=== PATIENT | male | born 1975 | race Caucasian/White ===

== ENCOUNTER 2020-01-13 16:46 | Outpatient (CLI) | payer OTHER, SELFPAY ==
--- NOTE | ~2020-01-13 | MR_ITS ---
EXAMINATION: MR cervical spine wo con EXAM DATE: 01/13/2020 17:59 INDICATION: Left hand one close. States fell 7 years ago. TECHNIQUE: Multi-sequential, multiplanar MR images of the cervical spine were obtained without contra st. Axial T2, axial T2 MERGE sequence. Sagittal T1, T2, T2 fat saturation images also obtained. Th ere is no prior study for comparison. FINDINGS: There is a sebaceous cyst in the midline at mid cervical level. Moderate loss of the C6-7 disc height, mild to moderate at C5-6. The vertebral body and disc heights are otherwise well maintai kassi. The vertebral bodies are aligned in the AP dimension. The spinal cord signal intensity and intri nsic morphology is normal. Cervicomedullary junction is normal in appearance. There are no suspicious marrow signal abnormalities. Level by level evaluation: C2-C3: Disc does not extend beyond the endplate margin. Uncovertebral joint arthropathy: None. Facet joint arthropathy: Mild bilateral. Neural foraminal stenosis: No stenosis. Central canal stenosis: No stenosis. C3-C4: Disc does not extend beyond the endplate margin. Uncovertebral joint arthropathy: Mild bilateral. Facet joint arthropathy: Mild bilateral. Neural foraminal stenosis: No stenosis. Central canal stenosis: No stenosis. C4-C5: Disc does not extend beyond the endplate margin. Uncovertebral joint arthropathy: Mild bilateral. Facet joint arthropathy: Mild to moderate bilateral. Neural foraminal stenosis: Mild bilateral. Central canal stenosis: No stenosis. C5-C6: There is a mild diffuse disc bulge. Uncovertebral joint arthropathy: Mild to moderate bilateral. Facet joint arthropathy: Mild to moderate bilateral. Neural foraminal stenosis: Mild to moderate bilateral. Central canal stenosis: Mild. C6-C7: There is a mild diffuse disc bulge. Uncovertebral joint arthropathy: Moderate bilateral. Facet joint arthropathy: Mild bilateral. Neural foraminal stenosis: Moderate bilateral. Central canal stenosis: Mild. C7-T1: Disc does not extend beyond the endplate margin. Uncovertebral joint arthropathy: None. Facet joint arthropathy: Mild bilateral. Neural foraminal stenosis: No stenosis. Central canal stenosis: No stenosis. IMPRESSION: 1. C6-7 moderate bilateral neural foraminal stenosis. 2. Less spondylosis at other levels. Reviewed, dictated and finalized at location B.
== END 2020-01-13 16:47 ==
PROVIDERS: Visit Provider Pain Medicine Interventional Pain Medicine
DX: M47.22 Other spondylosis with radiculopathy, cervical region (principal); M48.02 Spinal stenosis, cervical region
CPT/HCPCS: 72141

== ENCOUNTER 2020-01-21 14:27 | Outpatient (CLI) | payer OTHER, SELFPAY ==
--- NOTE | ~2020-01-21 | XR_ITS ---
EXAMINATION: XR hand LT 2V, XR wrist LT min 3V DATE: 01/21/2020 14:46 INDICATION: Erythema and swelling of the left hand and wrist TECHNIQUE: 1. Posteroanterior, ulnar deviation, oblique, and lateral views of the left wrist were obtained. 2. Dorsal palmar and lateral views of the left hand were obtained. COMPARISON: None. FINDINGS: Alignment of the left hand and wrist are normal. No fracture identified. 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 Additional mild osteoarthritis at the midcarpal joint with mild narrowing of the scaphoid capitate articulation. Lucency without evident cortical interruption at th e ulnar styloid process which could represent degenerative cystic change or erosion. Diffuse soft tis carolyn swelling throughout the left hand and wrist. No soft tissue gas or radiopaque foreign bodies. IMPRESSION: 1. Nonspecific diffuse soft tissue swelling about the left hand and wrist. No acute osseous abnormali ty. Reviewed, dictated and finalized at location B. IMPRESSION: 1. Nonspecific diffuse soft tissue swelling about the left hand and wrist. No a cute osseous abnormality.
[2020-01-21 15:24] LABS: Basophils Percent Auto 0.4 % (0.2-1.2); Eosinophils Percent Auto 0.1 % (0-4.4); Hemoglobin 14.9 g/dL (14.0-18.0); Immature Granulocyte Absolute 0.02 K/mm3 (0.00-0.031); Immature Granulocyte Percent A 0.2 % (0-0.5); Lymphocytes Absolute Auto 0.85 K/mm3 (0.9-3.2); Lymphocytes Percent Auto 10.5 % (18.3-44.2); Mean Corpuscular HGB Conc 34.7 g/dl (32-36); Mean Corpuscular Hemoglobin 36.1 pg (26-34); Mean Corpuscular Volume 104.1 fl (80-100); Mean Platelet Volume 9.8 fl (7.4-10.4); Monocytes Absolute Auto 0.8 K/mm3 (0.1-0.6); Monocytes Percent Auto 9.5 % (2.6-8.5); Neutrophils Absolute Auto 6.4 K/mm3 (1.3-6.7); Neutrophils Percent Auto 79.3 % (45.5-73.1); Platelet Count Result 102 k/mm3 (150-375); Red Blood Count 4.13 M/mm3 (4.6-6.20); Red Cell Distribution Width 12.9 % (11.5-14.5); White Blood Count 8.1 K/mm3 (4.5-10.0)
[2020-01-21 15:51] LABS: Erythrocyte Sedimentation Rate 10 mm/hr (0-20)
[2020-01-21 17:06] LABS: Anion Gap 12 mmol/L (8-16); Blood Urea Nitrogen 7 mg/dL (9-20); CRP 0.6 mg/dL (<1.0); Calcium 8.9 mg/dL (8.4-10.2); Carbon Dioxide 28 mmol/L (22-30); Chloride 99 mmol/L (98-107); Cholesterol 163 mg/dL (0-200); Estimated Glomerular Filt Rate > 60; Glucose 109 mg/dL (75-110); HDL Direct 56 mg/dL; Potassium 3.5 mmol/L (3.4-5.0); Sodium 139 mmol/L (137-145); Triglycerides 501 mg/dL (<150)
[2020-01-21 17:13] LABS: Rheumatoid Factor < 12.0 IU/ML (<12)
[2020-01-21 17:14] LABS: LDL Cholesterol Direct 51 mg/dL
[2020-01-25 12:45] LABS: ANA Cascade Screen Positive (Negative)
[2020-01-26 15:42] LABS: Chromatin (Nucleosomal) Ab <1.0; Sm Antibody <1.0; Sm/RNP Antibody <1.0
== END 2020-01-21 14:28 | disposition home or self-care (01) ==
PROVIDERS: PCP Family Medicine; Visit Provider Nurse Practitioner Family
DX: M79.641 Pain in right hand (principal); M79.642 Pain in left hand; Z12.5 Encounter for screening for malignant neoplasm of prostate; Z13.1 Encounter for screening for diabetes mellitus; M25.531 Pain in right wrist; M25.50 Pain in unspecified joint
CPT/HCPCS: 36415; 73110; 73120; 80048; 80061; 84153; 84550; 85025; 85652; 86038; 86140; 86225; 86235; 86430; G0103

== ENCOUNTER 2020-02-13 12:00 | Outpatient (NON) | payer OTHER, SELFPAY ==
[2020-02-13 14:38] LABS: Influenza Control Positive
[2020-02-15 00:53] LABS: SARS-CoV-2 RNA PCR Negative
== END 2020-02-13 12:01 ==
LOC: ANHCOVIDDT 12:01
PROVIDERS: PCP Family Medicine; Visit Provider Physician Assistant Medical
DX: Z20.828 Contact with and (suspected) exposure to other viral communicable diseases (principal); R68.89 Other general symptoms and signs; R50.9 Fever, unspecified
CPT/HCPCS: 87635; 87804; C9803; U0003

== ENCOUNTER 2021-06-10 14:33 | Emergency (ER) | payer OTHER, SELFPAY ==
--- NOTE | ~2021-06-10 | US_ITS ---
US scrotum doppler INDICATION: Right lower quadrant pain radiating to the scrotum. TECHNIQUE: Testicular sonogram utilizing grayscale and color Doppler FINDINGS: Within the right testicle there is a heterogeneous mass measuring 1.5 x 1.4 x 1.3 cm. There is increased vascularity in the right testicle. No discrete mass is identified in the left testicle which exhibits normal vascularity. The right testes measures 4.1 x 3.2 x 2.3 cm centimeters, and the left testis measures 4 x 3.5 x 2.4 cm cm. There are bilateral epididymal cysts. Small right hydrocele. IMPRESSION: 1. Right testicular mass measuring 1.5 cm with increased surrounding vascularity. Findings suspiciou s for malignancy. Recommend urological consultation. 2: Small right hydrocele. Reviewed, dictated and finalized at location A. [employer]LY[employer] IMPRESSION: 1. Right testicular mass measuring 1.5 cm with increased surrounding vasculari ty. Findings suspicious for malignancy. Recommend urological consultation. 2: Small right hydrocele.
--- NOTE | ~2021-06-10 | CT_ITS ---
EXAMINATION: CT abdomen pelvis w con DATE: 06/10/2021 17:58 INDICATION: Right testicular pain and swelling. TECHNIQUE: Computed tomography (CT) of the abdomen and pelvis was performed with 100 cc Omnipaque 350 intravenous contrast. The dose-length product was 450.05 mGy-cm. Automated exposure control and iter ative reconstruction technique were employed. COMPARISON: Ultrasound dated 06/10/2021 FINDINGS: Bibasilar dependent atelectasis. Heart size normal. The liver, spleen, pancreas, adrenal gl ands are unremarkable. There are nonobstructing bilateral renal stones. Small subcentimeter hypodensi ty of the right kidney, most likely benign cyst. Gallbladder is present. Nonobstructive bowel gas pat tern. Normal appendix. There is diffuse bladder wall thickening, likely due to underdistention. There is a right testicular mass corresponding to the abnormality seen on ultrasound, concerning for malig jhonathan. IMPRESSION: 1. No acute abdominal abnormality. 2: 1.3 cm right testicular mass, concerning for malignancy. 3: Nonobstructing bilateral nephrolithiasis. Reviewed, dictated and finalized at location A. ERCIAL FISHER
[2021-06-10 14:40] VITALS: BP 140/99; PULSE 78; RESP 17; TEMP 36.4; O2SAT 97
[2021-06-10] MEDS: ONDANSETRON INJ 4 MG/2 ML VIAL IV PUSH (15:03)
--- NOTE | 2021-06-10 15:04 | ED.ABDPAIN ---
HPI - Abdominal Pain General Chief Complaint: Abdominal Pain Stated Complaint: abd pain Time Seen by Provider: 06/10/21 14:48 Source: patient Mode of arrival: ambulatory Limitations: no limitations History of Present Illness HPI narrative: This is a 45-year-old male that presents to the emergency department for right testicular pain noted since yesterday. Associated with swelling of the area. The pain radiates into his right lower quadrant. Also reports some dysuria. Denies fever, vomiting, or hematuria. Related Data Home Medications Medication Instructions Recorded Confirmed buprenorphine 12 mg-naloxone 3 mg 1 film BUCCAL Q24H 04/06/21 04/06/21 sublingual film Allergies Allergy/AdvReac Type Severity Reaction Status Date / Time No Known Allergies Allergy Unknown Verified 06/10/21 14:45 Review of Systems Review of Systems: CONSTITUTIONAL: Denies fever GASTROINTESTINAL: Reports abdominal pain. Denies nausea, vomiting GENITOURINARY: Reports dysuria. Denies hematuria. SKIN: Denies rash All systems reviewed & are unremarkable except as noted in HPI and below PMFSH Past Medical History Medical History (Updated 06/10/21 @ 18:48 by Domenica Godinez PA-C) Alcohol addiction BMI 27.0-27.9,adult Hepatitis C Hypertension Tobacco abuse Family History Family History Father Cerebrovascular accident Hypertension Mother No problems noted. Sibling No problems noted. Social History Social History Tobacco type: cigarettes Second hand tobacco smoke exposure: Yes Alcohol intake: former Substance use: current Substance use type: marijuana Additional occupation/education comments: [employer] Gender identity (if verbalized by the patient): Male Exam Narrative: GENERAL: Well-appearing, well-nourished, and in no acute distress. HEAD: Normocephalic, atraumatic. EYES: EOMI. CHEST: Clear to auscultation. No respiratory distress. No wheezes rales or rhonchi HEART: Regular rate and rhythm. No murmur heard. Normal peripheral pulses. ABDOMEN: Soft, nondistended, normal active bowel sounds. Tender to palpation in the RLQ, without guarding EXTREMITIES: Normal range of motion. No edema. SKIN: Warm, dry, no rash. NEURO: No focal deficits. Alert and oriented x3. PSYCH: Normal mood and affect MALE GENITAL: Right testicle is mildly swollen and tender to palpation. No abnormal rashes or lesions. No abnormal urethral discharge Course Consultations Consultation #1: With Dr. Escobar about patient and work-up. Plan is to treat patient with antibiotics to cover for orchitis and rescan once he has finished these. Tumor markers are pending. Date: 06/10/21 Time: 18:30 Vital Signs Vital signs: Vital Signs Temperature 97.6 F 06/10/21 14:40 Pulse Rate 78 06/10/21 14:40 Respiratory Rate 17 06/10/21 14:40 Blood Pressure 140/99 H 06/10/21 14:40 Pulse Oximetry 97 06/10/21 14:40 Temperature 97.6 F 06/10/21 14:40 Pulse Rate 78 06/10/21 14:40 Respiratory Rate 17 06/10/21 14:40 Blood Pressure 140/99 H 06/10/21 14:40 Pulse Oximetry 97 06/10/21 14:40 MDM - Abdominal Pain MDM Narrative Medical decision making narrative: Patient presents to the emergency department for right testicular pain radiating into the right lower quadrant. He is afebrile and nontoxic-appearing. CBC and metabolic panel without concerning findings. Lipase is normal. UA without evidence of infection. Scrotal ultrasound shows a right testicular mass measuring 1.5 cm with increased surrounding vascularity suspicious for malignancy. Small right hydrocele. CT scan of the abdomen and pelvis is without acute abdominal abnormality. Does once again show 1.3 cm right testicular mass concerning for malignancy. Patient and family updated on case findings. With Dr. Escobar about patient and work
[2021-06-10 15:18] LABS: Basophils Percent Auto 0.2 % (0.2-1.2); Eosinophils Percent Auto 0.3 % (0-4.4); Hematocrit 44.4 % (42.0-52.0); Hemoglobin 15.4 g/dL (14.0-18.0); Immature Granulocyte Absolute 0.01 K/mm3 (0.00-0.031); Immature Granulocyte Percent A 0.1 % (0-0.5); Lymphocytes Absolute Auto 1.92 K/mm3 (0.9-3.2); Lymphocytes Percent Auto 22.3 % (18.3-44.2); Mean Corpuscular HGB Conc 34.7 g/dl (32-36); Mean Corpuscular Volume 92.1 fl (80-100); Mean Platelet Volume 10.8 fl (7.4-10.4); Monocytes Absolute Auto 0.6 K/mm3 (0.1-0.6); Monocytes Percent Auto 7.2 % (2.6-8.5); Neutrophils Percent Auto 69.9 % (45.5-73.1); Platelet Count Result 187 k/mm3 (150-375); Red Blood Count 4.82 M/mm3 (4.6-6.20); Red Cell Distribution Width 12.8 % (11.5-14.5); White Blood Count 8.6 K/mm3 (4.5-10.0)
[2021-06-10 15:37] LABS: Ethanol < 10 mg/dL (<10)
[2021-06-10 16:22] LABS: Alanine Aminotransferase 65 U/L (4-50); Albumin Level 4.4 g/dL (3.5-5.1); Alkaline Phosphatase 100 U/L (38-126); Anion Gap 8 mmol/L (8-16); Aspartate Amino Transferase 46 U/L (17-59); Bilirubin,Total 1.1 mg/dL (0.2-1.3); Blood Urea Nitrogen 10 mg/dL (9-20); Calcium 9.5 mg/dL (8.4-10.2); Carbon Dioxide 22 mmol/L (22-30); Chloride 106 mmol/L (98-107); Estimated CRCL calculation 88 ml/min; Estimated Glomerular Filt Rate > 60; Glucose 137 mg/dL (65-110); Lipase 229 U/L (23-300); Potassium 4.2 mmol/L (3.4-5.0); Sodium 136 mmol/L (137-145)
[2021-06-10 16:47] LABS: Prothrombin Time 13.2 Seconds (11.1-14.7)
[2021-06-10 16:48] LABS: Partial Thromboplastin Time 28.4 SECONDS (22.3-36.8)
[2021-06-10 17:05] LABS: Add Urine Microscopic? YES; Appearance Urine Clear (Clear); Bacteria Urine 1+ /hpf; Bilirubin Urine Negative (Negative); Blood Urine Negative (Negative); Color Urine Yellow (Yellow); Glucose Urine UA Negative (Negative); Ketones Urine Trace mg/dL (Negative); Leukocyte Esterase Ur Negative LEU/UL (Negative); Mucus Urine Rare /lpf; Nitrate Urine Negative (Negative); Protein Urine Negative (Negative); WBC Urine 0-3 /hpf
[2021-06-10 17:24] LABS: Amphetamine Screen Urine Negative (Negative); Barbiturate Screen Urine Negative (Negative); Benzodiazepines Screen Urine Negative (Negative); Cannabinoid Screen Urine Positive (Negative); Cocaine Screen Urine Negative (Negative); Methadone Screen Urine Negative (Negative); Opiate Screen Urine Negative (Negative); Phencyclidine Screen Urine Negative (Negative)
[2021-06-10 17:41] LABS: Lactate Dehydrogenase 408 U/L (313-618)
[2021-06-10] MEDS: KETOROLAC 15 MG/ML VIAL (*BKC) IV PUSH (18:01)
[2021-06-10 19:15] VITALS: BP 112/82; PULSE 77; RESP 16; O2SAT 98
[2021-06-14 06:04] LABS: HCG Tumor Marker <3 mIU/mL (<5)
[2021-06-17 19:41] LABS: Alpha Fetoprotein Tumor Marker 2.7 ng/mL (<6.1)
== END 2021-06-10 19:24 | disposition home or self-care (01) ==
PROVIDERS: Physician Assistant; Emergency Provider Emergency Medicine; PCP Nurse Practitioner Family
DX: N45.2 Orchitis (principal); N50.89 Other specified disorders of the male genital organs; Z86.19 Personal history of other infectious and parasitic diseases; I10 Essential (primary) hypertension; N20.0 Calculus of kidney; F17.210 Nicotine dependence, cigarettes, uncomplicated
CPT/HCPCS: 36415; 74177; 76870; 80053; 80307; 81001; 82105; 83615; 83690; 84702; 85025; 85610; 85730; 93976; 96374; 96375; 99284; A9270; J0131; J1885; J2405; Q9967

== ENCOUNTER 2023-03-04 07:00 | Outpatient (NON) | payer OTHER, SELFPAY | END 2023-03-04 07:01 | disposition home or self-care (01) | PROVIDERS: PCP Internal Medicine; Visit Provider Internal Medicine Gastroenterology | DX: Z12.11 Encounter for screening for malignant neoplasm of colon (principal) | CPT/HCPCS: 88305 ==

== ENCOUNTER 2023-03-04 11:41 | Day surgery (SDC) | payer OTHER, SELFPAY ==
[2023-02-21 07:02] VITALS: BMI 22.4
[2023-02-21 15:00] VITALS: BMI 23.1
--- NOTE | 2023-02-27 13:07 | P.HP_ITS ---
History of Present Illness History of Present Illness Consent: Risks, benefits, and alternatives have been discussed and questions answered. Patient agrees to proceed with procedure. Chief complaint: Neoplasm Screening Narrative: Alberto Hart is a 47 year old male Referred for colon cancer screening. Review of Systems Review of Systems: All systems reviewed & are unremarkable except as noted in HPI and below PMFSH Past Medical History Medical History Alcohol addiction BMI 27.0-27.9,adult Body mass index [BMI] 22.0-22.9, adult Hepatitis C Hypertension Stromal tumor of right testicle Tobacco abuse Family History Family History Father Cerebrovascular accident Hypertension Mother No problems noted. Sibling No problems noted. Social History Social History Smoking packs per day: 1 Smoking cigarettes per day: 20.0 Years smoked: 25 Smoking pack-years: 25.00 Smoking status: Current every day smoker Tobacco type: cigarettes Second hand tobacco smoke exposure: Yes Alcohol intake: former Substance use: current Substance use type: former substance user and marijuana Living arrangements: alone Occupation/Education: occupation Additional occupation/education comments: [employer] Gender identity (if verbalized by the patient): Male Spiritual care concerns: No Meds Home Medications and Allergies Home Medications Medication Instructions Recorded Confirmed Type buprenorphine 12 mg-naloxone 3 mg 1 film buccal Q24H 04/06/21 03/04/23 History sublingual film propranolol 20 mg tablet 20 mg PO Q12H #60 tabs 02/08/22 03/04/23 Rx quetiapine 100 mg tablet 100 mg PO BID #60 tabs 02/08/22 03/04/23 Rx methocarbamol 750 mg tablet See Rx Instructions .Route 10/01/22 03/04/23 Rx .COMPLEX #120 tabs allopurinol 100 mg tablet See Rx Instructions .Route 10/31/22 03/04/23 Rx .COMPLEX #90 tabs lisinopril 10 mg tablet 10 mg PO DAILY #90 tabs 10/31/22 03/04/23 Rx gabapentin 600 mg tablet 600 mg PO TID #90 tabs 11/27/22 03/04/23 Rx oxcarbazepine 150 mg tablet 150 mg PO BID 02/21/23 03/04/23 History Allergies Allergy/AdvReac Type Severity Reaction Status Date / Time No Known Allergies Allergy Unknown Verified 03/04/23 12:18 Exam Const: General: alert Orientation/consciousness: patient oriented x3 Resp: Auscultation: clear to auscultation bilaterally Cardio: Rhythm: regular rhythm GI: GI Palp: Yes Soft to palpation and No Tenderness to palpation present (GI) Neuro: General: patient oriented x3 Assessment and Plan Assessment and plan (1) Colon cancer screening: Code(s): Z12.11 - Encounter for screening for malignant neoplasm of colon Status: Acute Assessment and Plan: Colonoscopy with possible biopsy or polypectomy or cautery or injection of substances.
[2023-03-04 12:19] VITALS: BP 144/98; PULSE 58; RESP 16; TEMP 36.6; O2SAT 100; BMI 22.9
--- NOTE | 2023-03-04 12:22 | P.PNAN_ITS ---
Anes - Initial Pre Proc Eval Procedure: Operation Date: 03/04/23 13:00 Proposed Procedures p Screening Colonoscopy - Bryan Galloway MD Date/Time: 03/04/23 12:22 Surgeon: Bryan Galloway MD Pre Op Diagnosis: Neoplasm Screening Patient Data Age: 47 Gender: M Height: 1.75 m Weight: 71 kg Allergies Allergy/AdvReac Type Severity Reaction Status Date / Time No Known Allergies Allergy Unknown Verified 03/04/23 12:18 Home Medications Medication Instructions Recorded Confirmed Type buprenorphine 12 mg-naloxone 3 mg 1 film buccal Q24H 04/06/21 03/04/23 History sublingual film propranolol 20 mg tablet 20 mg PO Q12H #60 tabs 02/08/22 03/04/23 Rx quetiapine 100 mg tablet 100 mg PO BID #60 tabs 02/08/22 03/04/23 Rx methocarbamol 750 mg tablet See Rx Instructions .Route 10/01/22 03/04/23 Rx .COMPLEX #120 tabs allopurinol 100 mg tablet See Rx Instructions .Route 10/31/22 03/04/23 Rx .COMPLEX #90 tabs lisinopril 10 mg tablet 10 mg PO DAILY #90 tabs 10/31/22 03/04/23 Rx gabapentin 600 mg tablet 600 mg PO TID #90 tabs 11/27/22 03/04/23 Rx oxcarbazepine 150 mg tablet 150 mg PO BID 02/21/23 03/04/23 History Patient hx anesthesia problems: none Family hx anesthesia problems: none Results Review: All pre-operative results and documents have been reviewed as part of the pre- operative evaluation. FORMERLY [facility], [facility] Past Medical History Medical History Alcohol addiction BMI 27.0-27.9,adult Body mass index [BMI] 22.0-22.9, adult Hepatitis C Hypertension Stromal tumor of right testicle Tobacco abuse Family History Family History Father Cerebrovascular accident Hypertension Mother No problems noted. Sibling No problems noted. Social History Social History Smoking packs per day: 1 Smoking cigarettes per day: 20.0 Years smoked: 25 Smoking pack-years: 25.00 Smoking status: Current every day smoker Tobacco type: cigarettes Second hand tobacco smoke exposure: Yes Alcohol intake: former Substance use: current Substance use type: former substance user and marijuana Living arrangements: alone Occupation/Education: occupation Additional occupation/education comments: [employer] Gender identity (if verbalized by the patient): Male Spiritual care concerns: No Anes - Eval Final PreProcedure Day of Procedure 03/04/23 12:22 Patient weight: normal Heart: regular rate and rhythm Lungs: decreased breath sounds Airway: Mallampati scale class II and special considerations poor dentition Neurological: alert and oriented Last oral intake: >/= 8 hours ASA classification: III Emergent: no Anesthetic plan: proceed Anesthesia type and monitoring: general GIVS and standard monitoring Results Review: All pre-operative results and documents have been reviewed as part of the pre- operative evaluation. Informed Consent: The patient's anesthetic plan and its attendant risks and benefits were discussed with the patient/family/POA. Questions were solicited and answers provided to the satisfaction of the patient/family/POA.
[2023-03-04] MEDS: LACTATED RINGERS 1,000 ML 150 ML IV CONT (12:42)
[2023-03-04 13:23] VITALS: BP 94/69; PULSE 69; RESP 18; O2SAT 100
[2023-03-04 13:33] VITALS: BP 96/62; PULSE 65; RESP 16; O2SAT 100
[2023-03-04 13:43] VITALS: BP 105/70; PULSE 79; RESP 16; O2SAT 100
--- NOTE | 2023-03-04 13:58 | WPDANESPN ---
Anes - Prog Note Post-Op Date/Time: 03/04/23 13:58 Cardiovascular status: normal Respiratory status: normal Airway patency: baseline Mental status: baseline Post-Op hydration status: normal Vital Signs: Last Vital Signs Temp 36.6 C 03/04/23 12:19 Pulse 79 03/04/23 13:43 Resp 16 03/04/23 13:43 BP 105/70 03/04/23 13:43 Pulse Ox 100 03/04/23 13:43 O2 Del Method Room Air 03/04/23 13:43 Pain Score (VAS): 0 I/O: Intake & Output 03/03/23 03/04/23 03/04/23 23:59 07:59 15:59 Intake Total 500 Balance 500 Patient Feedback: Patient satisfied with anesthetic care.
== END 2023-03-04 13:53 | disposition home or self-care (01) ==
PROVIDERS: PCP Internal Medicine; Visit Provider Internal Medicine Gastroenterology
PROC: 0DJD8ZZ Inspection of Lower Intestinal Tract, Via Natural or Artificial Opening Endoscopic (ICD-10-PCS; CPT 45378; principal; 2023-03-04 13:00)
DX: Z12.11 Encounter for screening for malignant neoplasm of colon (principal); K52.9 Noninfective gastroenteritis and colitis, unspecified; K57.30 Diverticulosis of large intestine without perforation or abscess without bleeding; K64.2 Third degree hemorrhoids
CPT/HCPCS: 45380

== ENCOUNTER 2023-08-07 17:02 | Observation (INO) | payer OTHER, SELFPAY ==
[2023-08-07] VITALS (10 sets, daily range): BP systolic 104–121; BP diastolic 62–85; PULSE 84–108; RESP 13–19; TEMP 36.4–37; O2SAT 99–100; BMI 22.4
--- NOTE | ~2023-08-07 | CT_ITS ---
EXAMINATION: CT abdomen pelvis w con DATE: 08/07/2023 18:18 INDICATION: Left scrotal abscess, extending to the perineum TECHNIQUE: Computed tomography (CT) of the abdomen and pelvis was performed with 100 CC Omnipaque 350 intravenous contrast. Automated exposure control and iterative reconstruction technique were employe d. Exam dose: 320.91 mGy-cm total exam DLP. COMPARISON: 06/10/2021 CT abdomen pelvis FINDINGS: Lung bases are clear. Normal heart size. There is trace pericardial fluid. No pleural effus ion. Several very small hepatic hypodensities are most likely cysts. The liver is otherwise unremarkable. There is approximately 2.6 mm thickness of the gallbladder wall which may be due to under distention or possibly chronic cholecystitis. No pericholecystic fluid or fat stranding or bile duct or pancreat ic duct dilatation is detected. Normal splenic size. Normal morphology of the adrenal glands. No renal mass lesion or urinary tract calculus or hydroureteronephrosis. The urinary bladder is relat ively evacuated. The bladder wall appears thickened. Cystitis is not excluded. Urinary bladder mass l esion cannot be excluded on this limited examination with under distention of urinary bladder. Normal caliber of the abdominal aorta. No intraperitoneal or retroperitoneal or pelvic mass lesion or adenopathy or ascites. No bowel obstruction, bowel wall thickening, pneumatosis or intraperitoneal free air. Prominent air fluid level is noted in the posterior left scrotal area with subcutaneous emphysema and fluid density and fat soft tissue stranding extending into the left perineum and medial aspect of th e left gluteal fold. The overall extent of this process measures up to 6.6 cm anteroposterior, 3.3 cm transverse and 7.8 cm vertical dimension. Small bilateral fat-containing inguinal hernias. No suspicious osteolytic or osteoblastic lesions. IMPRESSION: Posterior left scrotal abscess extending into the left perineum and medial aspect of the left gluteal fold Reviewed, dictated and finalized at [facility]. Reviewed, dictated and finalized at [facility]. IMPRESSION: Posterior left scrotal abscess extending into the left perineum an d medial aspect of the left gluteal fold
--- NOTE | 2023-08-07 17:21 | ED.MALEGU ---
HPI - Male Genitourinary General Chief complaint: Urogenital-Male Stated complaint: requesting US of left testicle Time Seen by Provider: 08/07/23 17:05 History of Present Illness HPI Narrative: 41-year-old male with history of hypertension, anxiety, hepatitis-C and previous alcohol abuse presents to emergency department for left scrotal pain and swelling for 3 days. Patient states he noticed a lump to his testicle on the left side into his primary care physician today. He was advised to come to the ED for further evaluation. States the pain is worse when he sits and he also has some dysuria and nausea. He is also reporting pain to the left lower quadrant of his abdomen. Prior abdominal pelvic surgeries include a right orchiectomy and right inguinal hernia mesh repair. Denies fever and diarrhea. States he did have multiple episodes of vomiting a day prior to when he noticed the lump in the left side of the scrotum. Last bowel movement 2 days ago. States he has not used alcohol in multiple years. Endorses use of marijuana, denies other drug use. Denies concern for sexually transmitted diseases. Related Data Home Medications Medication Instructions Recorded Confirmed buprenorphine 12 mg-naloxone 3 mg 1 film buccal Q24H 04/06/21 08/07/23 sublingual film oxcarbazepine 150 mg tablet 150 mg PO BID 02/21/23 08/07/23 Allergies Allergy/AdvReac Type Severity Reaction Status Date / Time No Known Allergies Allergy Unknown Verified 08/07/23 12:49 Review of Systems Review of Systems: CONSTITUTIONAL: Denies fever, chills, or sweats. EYES: Denies visual changes, redness, or discharge. ENT: Denies rhinorrhea, congestion, sore throat, or otalgia. CARDIOVASCULAR: Denies chest pain, palpitations, or edema. RESPIRATORY: Denies cough or dyspnea. GASTROINTESTINAL: See HPI GENITOURINARY: See HPI SKIN: Denies rash or itching. MUSCULOSKELETAL: Denies back pain, joint pain, or myalgia. NEUROLOGIC: Denies headache, numbness, or weakness. PSYCHIATRIC: Denies anxiety or depression. [facility] Past Medical History Medical History Alcohol addiction Body mass index [BMI] 22.0-22.9, adult Hepatitis C Hypertension Stromal tumor of right testicle Tobacco abuse Family History Family History Father Cerebrovascular accident Hypertension Mother No problems noted. Sibling No problems noted. Social History Social History Smoking packs per day: 1 Smoking cigarettes per day: 20.0 Years smoked: 25 Smoking pack-years: 25.00 Smoking status: Current every day smoker Tobacco type: cigarettes Second hand tobacco smoke exposure: Yes Alcohol intake: former Substance use: current Substance use type: former substance user and marijuana Living arrangements: alone Occupation/Education: occupation Additional occupation/education comments: [employer] Gender identity (if verbalized by the patient): Male Spiritual care concerns: No Exam Narrative: GENERAL: Well-appearing, well-nourished, and in no acute distress. HEAD: Normocephalic, atraumatic. EYES: PERRLA and EOMI. ENT: Nares clear, no rhinorrhea or epistaxis. Mucous membranes moist. NECK: Supple. CHEST: Clear to auscultation. No respiratory distress. HEART: Regular rate and rhythm. No murmur heard. Normal peripheral pulses. ABDOMEN: Normoactive bowel sounds. Abdomen soft with mild tenderness to the left inguinal region and left lower quadrant. No rebound, guarding or rigidity. No CVA tenderness. : Performed with presence of RN. There is significant left scrotal swelling with of focal large abscess just posterior to the left testicle, fluctuance in the middle with a central white punctum. There is erythema and induration that extends into the perineum that is tender to
[2023-08-07] MEDS: SODIUM CHLORIDE 0.9% IV 1,000 ML 999 ML IV CONT ×2 (17:41→20:14)
[2023-08-07] MEDS: MORPHINE SULFATE (*CRX) 4 MG/ML INJ IV PUSH ×2 (17:41→22:18)
[2023-08-07] MEDS: ONDANSETRON INJ 4 MG/2 ML VIAL IV PUSH (17:41)
[2023-08-07 17:42] LABS: Basophils Percent Auto 0.3 % (0.2-1.2); Hematocrit 37.9 % (42.0-52.0); Hemoglobin 13.9 g/dL (14.0-18.0); Immature Granulocyte Absolute 0.12 K/mm3 (0.00-0.031); Immature Granulocyte Percent A 0.8 % (0-0.5); Lymphocytes Percent Auto 9.2 % (18.3-44.2); Mean Corpuscular HGB Conc 36.7 g/dl (32-36); Mean Corpuscular Hemoglobin 33.5 pg (26-34); Mean Corpuscular Volume 91.3 fl (80-100); Mean Platelet Volume 9.8 fl (7.4-10.4); Monocytes Absolute Auto 0.6 K/mm3 (0.1-0.6); Monocytes Percent Auto 3.7 % (2.6-8.5); Neutrophils Absolute Auto 13.1 K/mm3 (1.3-6.7); Platelet Count Result 168 k/mm3 (150-375); Red Blood Count 4.15 M/mm3 (4.6-6.20); Red Cell Distribution Width 11.7 % (11.5-14.5); White Blood Count 15.2 K/mm3 (4.5-10.0)
[2023-08-07 17:54] LABS: Lactic Acid Reflex 2.1 mmol/L (0.7-2.0)
[2023-08-07 18:00] LABS: Alanine Aminotransferase 18 U/L (6-50); Albumin Level 4.2 g/dL (3.5-5.1); Alkaline Phosphatase 69 U/L (38-126); Anion Gap 10 mmol/L (4-12); Aspartate Amino Transferase 22 U/L (17-59); Bilirubin,Total 1.6 mg/dL (0.2-1.3); Blood Urea Nitrogen 13 mg/dL (9-20); Calcium 8.9 mg/dL (8.4-10.2); Carbon Dioxide 23 mmol/L (22-30); Chloride 99 mmol/L (98-107); Estimated CRCL calculation 55 ml/min; Estimated Glomerular Filt Rate 50; Glucose 117 mg/dL (65-110); Lipase 113 U/L (23-300); Potassium 2.8 mmol/L (3.4-5.0); Sodium 132 mmol/L (137-145)
--- NOTE | 2023-08-07 18:00 | ECG_ITS ---
SEE SCANNED COPY FOR CONFIRMED REPORT. MTDD
[2023-08-07 18:02] LABS: Appearance Urine Cloudy (Clear); Bacteria Urine None Seen /hpf; Bilirubin Urine 1+ (Negative); Blood Urine Negative (Negative); Color Urine Dark Yellow (Yellow); Glucose Urine UA Negative (Negative); Hyaline Casts Urine Present /lpf; Ketones Urine Trace mg/dL (Negative); Leukocyte Esterase Ur Trace LEU/UL (Negative); Need Manual Microscopic Reviewed; Nitrate Urine Negative (Negative); Non Pathogenic Casts >20; Protein Urine 1+ mg/dL (Negative); Specific Grav Ur 1.022 (1.001-1.035); Squamous Epithelial Cell Urine Many /hpf (Few); WBC Urine 0-5 /hpf (0-3)
[2023-08-07 18:05] LABS: Add Urine Microscopic? YES
[2023-08-07 18:09] LABS: Estimated CRCL calculation 52 ml/min; Estimated Glomerular Filt Rate 47
[2023-08-07 18:20] LABS: Magnesium 1.7 mg/dL (1.6-2.3)
[2023-08-07] MEDS: POTASSIUM CHLORIDE INJ 40 MEQ in SODIUM CHLORIDE 0.9% IV 500 ML 130 MEQ IVPB (18:47)
[2023-08-07] MEDS: POTASSIUM CHLORIDE 20 MEQ PACKET (FOR LIQUID) 40 MEQ PO (18:59)
--- NOTE | 2023-08-07 20:36 | PM.IMHP ---
H&P: HPI History of Present Illness Date/Time: 08/07/23 20:36 Chief Complaint: scrotal pain Narrative: This is a 47-year-old male with past medical history significant for alcohol dependence, patient has been sober for several years, hypertension, hepatitis-C, stroma tumor of the right testicle status post right orchiectomy, tobacco dependence, patient is a current everyday smoker of 1 pack of cigarettes. patient presents to the emergency room due to 3 days of scrotal pain and swelling, patient had abrupt malodorous discharge while in emergency room. Preliminary workup was significant for CT of abdomen and pelvis was reported as posterior left scrotal abscess. Patient has been admitted to IMU for further evaluation management and treatment. EXAMINATION: CT abdomen pelvis w con DATE: 08/07/2023 18:18 INDICATION: Left scrotal abscess, extending to the perineum TECHNIQUE: Computed tomography (CT) of the abdomen and pelvis was performed with 100 CC Omnipaque 350 intravenous contrast. Automated exposure control and iterative reconstruction technique were employed. Exam dose:? 320.91 mGy-cm total exam DLP.? COMPARISON: 06/10/2021 CT abdomen pelvis FINDINGS: Lung bases are clear. Normal heart size. There is trace pericardial fluid. No pleural effusion. Several very small hepatic hypodensities are most likely cysts. The liver is otherwise unremarkable. There is approximately 2.6 mm thickness of the gallbladder wall which may be due to under distention or possibly chronic cholecystitis. No pericholecystic fluid or fat stranding or bile duct or pancreatic duct dilatation is detected. Normal splenic size. Normal morphology of the adrenal glands. No renal mass lesion or urinary tract calculus or hydroureteronephrosis. The urinary bladder is relatively evacuated. The bladder wall appears thickened. Cystitis is not excluded. Urinary bladder mass lesion cannot be excluded on this limited examination with under distention of urinary bladder. Normal caliber of the abdominal aorta. No intraperitoneal or retroperitoneal or pelvic mass lesion or adenopathy or ascites. No bowel obstruction, bowel wall thickening, pneumatosis or intraperitoneal free air. Prominent air fluid level is noted in the posterior left scrotal area with subcutaneous emphysema and fluid density and fat soft tissue stranding extending into the left perineum and medial aspect of the left gluteal fold. The overall extent of this process measures up to 6.6 cm anteroposterior, 3.3 cm transverse and 7.8 cm vertical dimension. Small bilateral fat-containing inguinal hernias. No suspicious osteolytic or osteoblastic lesions. IMPRESSION:? Posterior left scrotal abscess extending into the left perineum and medial aspect of the left gluteal fold Review of Systems Review of Systems: Scrotal pain swelling malodorous discharge Constitutional: Constitutional: Denies chills, Denies fatigue, Denies fever(s), Denies malaise, Denies night sweats, Denies poor appetite and Denies weakness Eyes: Eyes: Denies change in vision ENT: Denies dysphagia and Denies odynophagia Cardiovascular: Cardiovascular: Denies chest pain, Denies radiating jaw, neck or arm pain and Denies palpitations Respiratory: Respiratory: Denies chest congestion, Denies cough, Denies excessive phlegm production and Denies dyspnea Gastrointestinal: Gastrointestinal: Denies abdominal pain, Reports diarrhea, Denies nausea and Denies vomiting Genitourinary: Genitourinary: Reports scrotal swelling Musculoskeletal: Musculoskeletal: Denies back pain and Denies myalgias Integumentary/Breasts: Skin/Breast: Reports skin pain and Reports skin swelling ( scrotum) Neurologic: Denies focal weakness and Denies Sensory deficit (Neuro) Psychiatric: Psychiatric: Reports no additional psychiatric complaints and Reports as per HPI Endocrine: Endocrine: Denies cold intolerance, Denies fatigue, Denies flushing, Denies heat intole
[2023-08-07 20:39] LABS: Reflex Lactic Acid Yes or No Add Lactic
--- NOTE | 2023-08-07 21:21 | PC.NURSE ---
while patient was lying in bed, he states he felt a sharp pain in scrotum and leakage shortly after. staff entered for assistance and obtained a wound culture from the drainage. GEORGINA Hernandez then attempted to drain the wound to relieve pressure. the drainage appeared light brown and had a very foul odor to it. after draining, GEORGINA placed gauze dressing to the area for further leaking. A depends was applied to patient per their request for comfort. the drainage site was a small hole less than 0.5cm. the scrotum continues to appear edematous and KUMAR Dodge in IMU was notified in this change in patient care. patient stated pain was 8/10 while draining the wound, but states they have relief of pain now that it has been drained
[2023-08-07 21:55] LABS: Lactic Acid 1.1 mmol/L (0.7-2.0)
[2023-08-07] MEDS: PIPERACILLN/TAZ 3.375GM/NS50ML 3.375 GM/50 ML BAG IVPB (21:55)
[2023-08-07] MEDS: QUEtiapine FUMARATE 100 MG TABLET PO (22:17)
[2023-08-07] MEDS: VANCOMYCIN 1,250 MG/NS 250 ML 1,250 MG/250 ML BAG 166.67 MG IVPB (22:18)
--- NOTE | 2023-08-07 22:34 | ADMGEN ---
This patient, Alberto Hart, was admitted to IMU Room 209-01 on 08/07/23 at 2108. Patient/family oriented to hospital policies and general routines including ID bracelet, bed and alarms, visiting hours, pain management, procedures, bathroom and other care routines, personal items, smoking policy, room service/diet, and visiting hours. Information on how to activate the Rapid Response Team has been discussed. Patient/Family are encouraged to report perceived risks to care and to ask questions if they do not understand what they are told or what they should do.
[2023-08-07] MEDS: SODIUM CHLORIDE 0.9% IV 1,000 ML 125 ML IV CONT (23:39)
[2023-08-08] VITALS (19 sets, daily range): BP systolic 99–118; BP diastolic 55–81; PULSE 56–91; RESP 12–18; TEMP 35.9–36.9; O2SAT 96–100
[2023-08-08] MEDS: PIPERACILLN/TAZ 3.375GM/NS50ML 3.375 GM/50 ML BAG IVPB ×4 (02:21→20:31)
[2023-08-08] MEDS: MORPHINE SULFATE (*CRX) 4 MG/ML INJ IV PUSH ×5 (04:10→18:37)
[2023-08-08 04:26] LABS: Estimated CRCL calculation 81 ml/min; Estimated Glomerular Filt Rate > 60
--- NOTE | 2023-08-08 06:39 | WPDURCON ---
Assessment and Plan Assessment and plan (1) Abscess of scrotum: Code(s): N49.2 - Inflammatory disorders of scrotum Status: Acute Assessment and Plan: Patient admitted for supportive care /antibiotics We will plan incision and drainage of scrotal abscess. I have explained to him that this could extend into the perineum and pelvis. I have explained that he will have an open wound will take several weeks to heal. Urology Consult Note HPI Date Seen: 08/08/23 Requesting Physician: Saloni Urrutia MD Primary Care Provider: Jareth Bhakta MD Consult Narrative Narrative: Alberto Hart is a 47 year old male Who is previously unknown to our practice has a history of right orchiectomy for a stromal tumor. He presented to his primary care physician yesterday afternoon with a 3 day history of left scrotal swelling and tenderness. He was directed to go to the emergency department where a large abscess drained spontaneously. Denies fevers chills nausea vomiting CT scan shows abscess in the left posterior scrotum extending into the perineum with inflammation into the buttocks. After consultation with Dr. Nielson we decided to admit for antibiotics and incision/drainage. This will be predominantly drainage of a scrotal abscess but he will be available if there is extension with deeper into the pelvis. Patient has a history of alcohol dependence and has hepatitis-C Review of Systems Cardiovascular: Cardiovascular: Denies chest pain, Denies lightheadedness, Denies palpitations and Denies dyspnea Respiratory: Respiratory: Denies dyspnea Gastrointestinal: Gastrointestinal: Denies diarrhea, Denies nausea and Denies vomiting Genitourinary: Genitourinary: Reports as per HPI, Denies hematuria, Denies dysuria and Reports scrotal swelling Endocrine: Endocrine: Denies palpitations PMFSH Past Medical History Medical History Alcohol addiction Body mass index [BMI] 22.0-22.9, adult Hepatitis C Hypertension Stromal tumor of right testicle Tobacco abuse Family History Family History Father Cerebrovascular accident Hypertension Mother No problems noted. Sibling No problems noted. Social History Social History Smoking packs per day: 1 Smoking cigarettes per day: 20.0 Years smoked: 25 Smoking pack-years: 25.00 Smoking status: Current every day smoker Tobacco type: cigarettes Second hand tobacco smoke exposure: Yes Alcohol intake: former Substance use: current Substance use type: former substance user and marijuana Do You Feel Safe in your Home?: Yes Lack of Transportation: No Lack of Food: Never True Current Housing: I Have Housing Concerned About Future Housing: No Difficulty Paying Gas/Electric Bills: No Difficulty Paying for Meds: No Currently Unemployed: No Education: High School Diploma/GED Difficulty w/ Childcare or Family Care: No Living arrangements: alone Occupation/Education: occupation Additional occupation/education comments: [employer] Gender identity (if verbalized by the patient): Male Spiritual care concerns: No Meds Home Medications and Allergies Home Medications Medication Instructions Recorded Confirmed Type buprenorphine 12 mg-naloxone 3 mg 1 film buccal Q24H 04/06/21 08/07/23 History sublingual film propranolol 20 mg tablet 20 mg PO Q12H #60 tabs 02/08/22 08/07/23 Rx quetiapine 100 mg tablet 100 mg PO BID #60 tabs 02/08/22 08/07/23 Rx oxcarbazepine 150 mg tablet 150 mg PO BID 02/21/23 08/07/23 History gabapentin 600 mg tablet 600 mg PO TID #90 tabs 03/20/23 08/07/23 Rx allopurinol 100 mg tablet 100 mg PO DAILY 08/07/23 08/07/23 History lisinopril 10 mg tablet 10 mg PO HS 08/07/23 08/07/23 History Allergies Allergy/AdvReac Type
--- NOTE | 2023-08-08 06:45 | WPDHPUPDATE1 ---
History and Physical Update Update Date/Time: 08/08/23 06:45 History and Physical has been reviewed, including an updated exam of the patient. There are NO changes in the patient's condition. Risks, benefits, and alternatives have been discussed and questions answered. Patient agrees to proceed with procedure.
--- NOTE | 2023-08-08 07:16 | WPDANESEPPF ---
Anes - Initial Pre Proc Eval Procedure: Operation Date: 08/08/23 07:00 Proposed Procedures p Incision And Drainage Scrotal And Perineal Abscess - Wale Beckett MD Date/Time: 08/08/23 07:16 Surgeon: Saloni Urrutia MD Pre Op Diagnosis: Scrotal Abscess Patient Data Age: 47 Gender: M Height: 1.78 m Weight: 71 kg Last Vital Signs Temp 97.6 F 08/08/23 03:50 Pulse 78 08/08/23 05:55 Resp 18 08/08/23 03:50 BP 105/55 L 08/08/23 03:50 Pulse Ox 100 08/08/23 03:50 O2 Del Method Room Air 08/08/23 04:00 Allergies Allergy/AdvReac Type Severity Reaction Status Date / Time No Known Allergies Allergy Unknown Verified 08/07/23 12:49 Home Medications Medication Instructions Recorded Confirmed Type buprenorphine 12 mg-naloxone 3 mg 1 film buccal Q24H 04/06/21 08/07/23 History sublingual film propranolol 20 mg tablet 20 mg PO Q12H #60 tabs 02/08/22 08/07/23 Rx quetiapine 100 mg tablet 100 mg PO BID #60 tabs 02/08/22 08/07/23 Rx oxcarbazepine 150 mg tablet 150 mg PO BID 02/21/23 08/07/23 History gabapentin 600 mg tablet 600 mg PO TID #90 tabs 03/20/23 08/07/23 Rx allopurinol 100 mg tablet 100 mg PO DAILY 08/07/23 08/07/23 History lisinopril 10 mg tablet 10 mg PO HS 08/07/23 08/07/23 History Laboratory Tests 08/07/23 08/07/23 08/07/23 17:34 17:35 17:49 WBC 15.2 H K/mm3 (4.5-10.0) RBC 4.15 L M/mm3 (4.6-6.20) Hgb 13.9 L g/dL (14.0-18.0) Hct 37.9 L % (42.0-52.0) MCV 91.3 fl (80-100) MCH 33.5 pg (26-34) MCHC 36.7 H g/dl (32-36) RDW 11.7 % (11.5-14.5) Plt Count 168 k/mm3 (150-375) MPV 9.8 fl (7.4-10.4) Immature Gran % (Auto) 0.8 H % (0-0.5) Neut % (Auto) 86.0 H % (45.5-73.1) Lymph % (Auto) 9.2 L % (18.3-44.2) [place] % (Auto) 3.7 % (2.6-8.5) Eos % (Auto) 0.0 % (0-4.4) Baso % (Auto) 0.3 % (0.2-1.2) Lymph # (Auto) 1.40 K/mm3 (0.9-3.2) [place] # (Auto) 0.6 K/mm3 (0.1-0.6) Eos # (Auto) 0.0 K/mm3 (0-0.3) Baso # (Auto) 0.0 K/mm3 (0.0-0.1) Abs Immat Gran (auto) 0.12 H K/mm3 (0.00-0.031) Absolute Neuts (auto) 13.1 H K/mm3 (1.3-6.7) Absolute Nucleated RBC 0.000 K/mm3 (0.0-0.012) Nucleated RBC % 0.0 % (0.0-0.2) Sodium 132 L mmol/L (137-145) Potassium 2.8 L* mmol/L (3.4-5.0) Chloride 99 mmol/L (98-107) Carbon Dioxide 23 mmol/L (22-30) Anion Gap 10 mmol/L (4-12) BUN 13 mg/dL (9-20) Creatinine 1.50 H mg/dL (0.7-1.3) Estim Creat Clear Calc 55 ml/min Estimated GFR 50 L (59 - ) Glucose 117 H mg/dL (65-110) Lactic Acid 2.1 H mmol/L (0.7-2.0) Calcium 8.9 mg/dL (8.4-10.2) Magnesium 1.7 mg/dL (1.6-2.3) Total Bilirubin 1.6 H mg/dL (0.2-1.3) AST 22 U/L (17-59) ALT 18 U/L (6-50) Alkaline Phosphatase 69 U/L (38-126) Total Protein 7.0 g/dL (6.3-8.2) Albumin 4.2 g/dL (3.5-5.1) Lipase 113 U/L (23-300) Urine Color Dark yellow (Yellow) Urine Appearance Cloudy H (Clear) Urine pH 5.0 (5.0-9.0) Ur Specific [place] 1.022 (1.001-1.035) Urine Protein 1+ H mg/dL (Negative) Urine Glucose (UA) Negative mg/dL (Negative) Urine Ketones Trace H mg/dL (Negative) Ur Blood (Man) Negative (Negative) Urine Nitrate Negative (Negative) Urine Bilirubin 1+ H (Negative) Urine Urobilinogen 2.0 H mg/dL (<2.0) Add Ur Microanalysis Reviewed Leukocyte Esterase Rfl Trace H CIPRIANO/UL (Negative) Urine RBC 3-5 H /hpf (0-2) Urine WBC 0-5 /hpf (0-3) Ur Sq
[2023-08-08 07:26] LABS: Potassium 3.4 mmol/L (3.4-5.0)
--- NOTE | 2023-08-08 08:03 | W.PM.PROC2 ---
Procedure Note - Detailed Date of Procedure 08/08/23 Pre-op Diagnosis Scrotal Abscess, Left perineal and left perirectal abscess Post-op Diagnosis Same Procedure Performed Incision and drainage of left perineal and left perirectal abscess Surgeon Anthony Nielson MD Anesthesia General Indications Patient is a 47-year-old gentleman who was admitted to the hospital with a 3 day history of worsening scrotal pain. He was evaluated urgency room in a CT scan abdomen pelvis showed a primarily scrotal abscess with extension into the left perineum and into the perirectal area. He was admitted to the hospital neurology was consulted. Dr. Beckett plans on taking patient to the operating room for incision and drainage of the scrotal abscess and I will assess the left perineum and left perirectal area. Findings Patient had a abscess in the base of the left side of the scrotum. This extended into the left perineum and towards the left perirectal area however the main portion of the extension of the abscess was into the left portion the perineum. There is no evidence of Santos's gangrene. Other findings as per Dr. Beckett' operative note. Description of Procedure For informed consent was obtained from the patient was taken to the operating was placed under general endotracheal anesthesia. He was then placed in the low lithotomy position. Time-out was then performed correctly identifying the patient as well as procedure to be performed. He was given scheduled IV antibiotics. Dr. Beckett then proceeded to incise and drain the left scrotal abscess. His operative findings can be found in his operative note. Once he had initially drained the scrotal abscess I then scrubbed into the procedure and digitally explored the abscess cavity and extended to the left side of the perineum and a little medial towards the perirectal region. There was extension about 5 to 6 cm between the base of the scrotum into the left perineum. Loculations this area broken down with finger dissection and then made a counter incision left perineal area with a scalpel. A Jaimee clamp was then placed through this counter incision leaving a 5 to 6 cm skin bridge. A half-inch [place] drain was then used to go between the counter incision and the scrotal incision. It was secured in place a loop configuration with some 3-0 nylon sutures. The abscess cavity was then irrigated with sterile saline solution as per Dr. Beckett. I left operating room in the patient and Dr. Beckett' care to irrigate the abscess and pack the wound. Patient tolerated my portion of procedure very well there were no complications. Sponge needles instrument counts were for to the procedure as per Dr. Beckett. Blood loss drainage of the left perineal and left perirectal abscess portions of the procedure was 5cc. Implants None Estimated Blood Loss 5 Urine Output 700 Drains Yes (Half-inch Leann drain left perineum and scrotum) Packing Yes Pathology None sent Complications No immediate complications Condition Stable Disposition PACU [facility] Billing Surgery - Charge Forward: Surgery Billing
--- NOTE | 2023-08-08 08:04 | P.OP_ITS ---
Procedure Note - Detailed Date of Procedure 08/08/23 Pre-op Diagnosis Scrotal/perineal abscess Post-op Diagnosis Same Procedure Performed incision and drainage of scrotal/perineal abscess Surgeon Wale Beckett MD and Anthony Nielson MD Anesthesia General Findings scrotal abscess involving the left hemiscrotum and extending into the perineum benign not involving the anus or rectum Description of Procedure Dr. Nielson and I performed this procedure together. Patient was prepped and draped in routine sterile fashion while in a dorsal lithotomy position after the uneventful induction of a general anesthetic. He has an area fluctuance over the posterior aspect of the left hemiscrotum. This is incised and digital palpation identifies extension into the perineum and upper part of the buttocks but does not involve the anus or rectum. These scrotal cavity was opened widely in a vertical direction and a counter incision is made in the perineum. Copious irrigation in a small amount of debridement of necrotic tissue was undertaken. A 1/2 Howard drain is placed through the primary incision and out the perineal counter-incision and secured with 2-0 silk. The abscess cavity was packed with 1/2 iodoform gauze. Blood loss was less than 10 cc. The patient tolerated this procedure well was taken recovery room good condition Estimated Blood Loss 10 Urine Output 700 Drains Yes (1/2 Howard) Packing Yes (1/2 iodoform) Complications No immediate complications Condition Stable Disposition PACU
[2023-08-08] MEDS: LACTATED RINGERS 1,000 ML 30 ML IV CONT (08:09)
[2023-08-08 08:39] LABS: Hematocrit 33.5 % (42.0-52.0); Mean Corpuscular HGB Conc 35.8 g/dl (32-36); Mean Corpuscular Hemoglobin 33.6 pg (26-34); Mean Corpuscular Volume 93.8 fl (80-100); Mean Platelet Volume 10.1 fl (7.4-10.4); Platelet Count Result 155 k/mm3 (150-375); Red Blood Count 3.57 M/mm3 (4.6-6.20); Red Cell Distribution Width 11.9 % (11.5-14.5); White Blood Count 11.7 K/mm3 (4.5-10.0)
[2023-08-08 08:53] LABS: Anion Gap 5 mmol/L (4-12); Blood Urea Nitrogen 8 mg/dL (9-20); Carbon Dioxide 23 mmol/L (22-30); Chloride 109 mmol/L (98-107); Estimated CRCL calculation 89 ml/min; Estimated Glomerular Filt Rate > 60; Glucose 107 mg/dL (65-110); Potassium 3.4 mmol/L (3.4-5.0); Sodium 137 mmol/L (137-145)
[2023-08-08] MEDS: PROPRANOLOL HCL 20 MG TABLET PO ×2 (09:36→20:31)
[2023-08-08] MEDS: QUEtiapine FUMARATE 100 MG TABLET PO ×2 (09:36→20:31)
[2023-08-08] MEDS: allopurinoL 100 MG TABLET PO (09:37)
[2023-08-08] MEDS: OXcarbazepine 150 MG TABLET PO ×2 (09:37→20:31)
--- NOTE | 2023-08-08 10:34 | PM.IMPN ---
Progress Note: A&P Assessment and Plan (1) Abscess of scrotum: Code(s): N49.2 - Inflammatory disorders of scrotum Status: Acute (2) Acute hypokalemia: Code(s): E87.6 - Hypokalemia Status: Acute Plan 47-year-old male with past medical history prior alcohol use disorder, tobacco abuse, hepatitis-C, hypertension, stromal tumor of right testicle status post orchiectomy. The patient presents with scrotal abscess on the left side with involvement of the perineum with Dr. Beckett and Dr. Nielson on 08/08/2023. Leann drain in place. Pain management per surgeons. Leukocytosis improving. He has soft blood pressures but this appears to be chronic for him. He is currently on normal saline at 125 cc/hour. Currently on vancomycin clindamycin and Zosyn. Pending MRSA screen. Discontinue vancomycin. Blood cultures and wound cultures pending. Acute hypokalemia resolved status post replacement. FEN: Normal saline. Diet. GI prophylaxis: DVT prophylaxis: SCDs Lines: Peripheral IV, and was drain placed on 08/07 intraop Code Status: Full code Dispo: Stable Subjective Date/time seen: 08/08/23 10:34 Interval history: Patient seen just postop for debridement of perineal/scrotal abscess. He does not seem interested in conversing. He has no complaints only that he wants to go home. Review of Systems Review of Systems: All systems reviewed & are unremarkable except as noted in HPI and below (Subjective) Exam Const: General: comfortable and no acute distress Eyes: Pupils: Equal, round and reactive pupils present Neck: Neck: supple Resp: Effort & Inspection: normal respiratory effort Auscultation: clear to auscultation bilaterally Cardio: Rate: regular rate Rhythm: regular rhythm Objective Data Vital Signs Vital Signs: Vital Signs - 24 hr 08/07/23 17:23 08/07/23 18:19 08/07/23 18:31 Temperature 97.6 F Pulse Rate 100 102 H 98 Respiratory Rate 19 15 14 Blood Pressure 113/71 117/72 109/71 Pulse Oximetry 100 100 99 Oxygen Delivery Room Air Oxygen Flow Rate 08/07/23 18:46 08/07/23 19:01 08/07/23 19:16 Temperature Pulse Rate 95 92 108 H Respiratory Rate 15 13 15 Blood Pressure 114/71 121/76 108/85 Pulse Oximetry 100 100 100 Oxygen Delivery Oxygen Flow Rate 08/07/23 19:31 08/07/23 20:30 08/07/23 21:05 Temperature 98.6 F Pulse Rate 96 101 H 96 Respiratory Rate 15 17 18 Blood Pressure 106/70 104/62 Pulse Oximetry 100 99 100 Oxygen Delivery Oxygen Flow Rate 08/07/23 22:00 08/07/23 23:44 08/08/23 00:00 Temperature Pulse Rate 84 86 Respiratory Rate Blood Pressure Pulse Oximetry Oxygen Delivery Room Air Oxygen Flow Rate 08/08/23 00:16 08/08/23 03:50 08/08/23 04:00 Temperature 97.6 F 97.6 F Pulse Rate 77 81 Respiratory Rate 18 18 Blood Pressure 105/59 L 105/55 L Pulse Oximetry 96 100 Oxygen Delivery Room Air Oxygen Flow Rate 08/08/23 04:00 08/08/23 05:55 08/08/23 08:09 Temperature 97.6 F Pulse Rate 78 78 91 Respiratory Rate 14 Blood Pressure 110/75 Pulse Oximetry 100 Oxygen Delivery Simple Face Mask Oxygen Flow Rate 10 08/08/23 08:20 08/08/23 08:35 08/08/23 08:40 Temperature Pulse Rate 73 72 Respiratory Rate 14 12 Blood Pressure 105/80 117/81 Pulse Oximetry 100 100 Oxygen Delivery Simple Face Mask Simple Face Mask Room Air Oxygen Flow Rate 8 8 08/08/23 08:50 08/08/23 09:05 08/08/23 09:15 Temperature 97.4 F L Pulse Rate 71 71 86 Respiratory Rate 14 12 12 Blood Pressure 112/78 108/75 107/73 Pulse Oximetry 97 96 98 Oxygen Delivery Room Air Room Air Room Air Oxygen Flow Rate 08/08/23 09:36 08/08/23 09:33 08/08/23 10:00 Temperature 97.1 F L 98.2 F Pulse Rate 70 80 56 L Respiratory Rate 16 18 Blood Pressure 105/73 99/58 L Pulse Oximetry 97 96 Oxygen Delivery Oxygen Flow Rate Intake/Output Intake/Output: Intake & Output 08/05/2307/09
[2023-08-08] MEDS: GABAPENTIN 300 MG CAPSULE 600 MG PO ×2 (14:39→22:07)
[2023-08-08] MEDS: CLINDAMYCIN 600 MG/D5W 50 ML 600 MG/50 ML PIGGYBACK 100 MG IVPB (22:01)
[2023-08-09] MEDS: PIPERACILLN/TAZ 3.375GM/NS50ML 3.375 GM/50 ML BAG IVPB ×2 (03:43→07:37)
[2023-08-09 04:23] VITALS: BP 102/50; PULSE 51; RESP 16; TEMP 36.4; O2SAT 96
[2023-08-09 05:59] LABS: Hematocrit 36.6 % (42.0-52.0); Hemoglobin 12.8 g/dL (14.0-18.0); Mean Corpuscular Hemoglobin 33.1 pg (26-34); Mean Corpuscular Volume 94.6 fl (80-100); Mean Platelet Volume 9.9 fl (7.4-10.4); Platelet Count Result 165 k/mm3 (150-375); Red Blood Count 3.87 M/mm3 (4.6-6.20); Red Cell Distribution Width 11.9 % (11.5-14.5); White Blood Count 4.9 K/mm3 (4.5-10.0)
[2023-08-09 06:12] LABS: Anion Gap 8 mmol/L (4-12); Blood Urea Nitrogen 7 mg/dL (9-20); Calcium 8.4 mg/dL (8.4-10.2); Carbon Dioxide 25 mmol/L (22-30); Chloride 108 mmol/L (98-107); Estimated CRCL calculation 89 ml/min; Estimated Glomerular Filt Rate > 60; Glucose 122 mg/dL (65-110); Potassium 3.1 mmol/L (3.4-5.0); Sodium 141 mmol/L (137-145)
[2023-08-09] MEDS: GABAPENTIN 300 MG CAPSULE 600 MG PO ×2 (06:14→14:38)
[2023-08-09] MEDS: CLINDAMYCIN 600 MG/D5W 50 ML 600 MG/50 ML PIGGYBACK 100 MG IVPB ×2 (06:14→14:38)
--- NOTE | 2023-08-09 06:53 | WPDUROPN2 ---
Progress Note: A&P Assessment and Plan (1) Abscess of scrotum: Code(s): N49.2 - Inflammatory disorders of scrotum Status: Acute Assessment and Plan: Scrotal incision is packed and without evidence bleeding. The patient is anxious for discharge. I will attempt to instruct his and packing changes every 48 hours Subjective Subjective Date/Time Seen: 08/09/23 06:53 Interval history: Moderate scrotal/perineal pain Anxious for discharge Review of Systems Cardiovascular: Cardiovascular: Denies chest pain, Denies lightheadedness, Denies palpitations and Denies dyspnea Respiratory: Respiratory: Denies dyspnea Gastrointestinal: Gastrointestinal: Denies diarrhea, Denies nausea and Denies vomiting Genitourinary: Genitourinary: Denies hematuria and Denies dysuria Endocrine: Endocrine: Denies palpitations Exam Const: General: no acute distress Resp: Effort & Inspection: normal respiratory effort GI: Inspection: non-distended GI Palp: No abdominal tenderness and No Guarding due to palpation present (GI) Auscultation: normal bowel sounds : Other: Genital dressing in place / basically dry Objective Data Vital Signs Vital Signs: Vital Signs - 24 hr 08/08/23 08:09 08/08/23 08:20 08/08/23 08:35 Temperature 97.6 F Pulse Rate 91 73 72 Respiratory Rate 14 14 12 Blood Pressure 110/75 105/80 117/81 Pulse Oximetry 100 100 100 Oxygen Delivery Simple Face Mask Simple Face Mask Simple Face Mask Oxygen Flow Rate 10 8 8 08/08/23 08:40 08/08/23 08:50 08/08/23 09:05 Temperature 97.4 F L Pulse Rate 71 71 Respiratory Rate 14 12 Blood Pressure 112/78 108/75 Pulse Oximetry 97 96 Oxygen Delivery Room Air Room Air Room Air Oxygen Flow Rate 08/08/23 09:15 08/08/23 09:36 08/08/23 09:33 Temperature 97.1 F L Pulse Rate 86 70 80 Respiratory Rate 12 16 Blood Pressure 107/73 105/73 Pulse Oximetry 98 97 Oxygen Delivery Room Air Oxygen Flow Rate 08/08/23 10:00 08/08/23 09:45 08/08/23 11:15 Temperature 98.2 F 96.7 F L Pulse Rate 56 L 70 80 Respiratory Rate 18 16 Blood Pressure 99/58 L 102/77 Pulse Oximetry 96 98 Oxygen Delivery Oxygen Flow Rate 08/08/23 16:00 08/08/23 20:31 08/08/23 20:33 Temperature 97.5 F L 98.5 F Pulse Rate 63 71 71 Respiratory Rate 14 16 Blood Pressure 118/60 112/72 Pulse Oximetry 98 100 Oxygen Delivery Oxygen Flow Rate 08/08/23 20:00 08/09/23 04:23 Temperature 97.5 F L Pulse Rate 51 L Respiratory Rate 16 Blood Pressure 102/50 L Pulse Oximetry 96 Oxygen Delivery Room Air Oxygen Flow Rate Intake/Output Intake/Output: Intake & Output 08/06/23 08/07/23 08/08/23 08/09/23 23:59 23:59 23:59 23:59 Intake Total 2570 990 300 Output Total 2100 Balance 2570 -1110 300 Meds/Results Medications: Active Medications Generic Name Dose Route Start Last Admin Trade Name Freq PRN Reason Stop Dose Admin Hydrocodone Bitart/Acetaminophen 1 tab 08/09/23 06:51 Hydrocodone/Acetaminophen (*Crx) 7.5-325 Mg Tablet PO Q6H PRN Pain Rated 7-10 Allopurinol 100 mg 08/08/23 09:00 08/08/23 09:37 Allopurinol 100 Mg Tablet PO 100 mg DAILY REINA Administration Gabapentin 600 mg 08/08/23 06:00 08/09/23 06:14 Gabapentin 300 Mg Capsule PO 600 mg Q8HR REINA Administration Piperacillin/Tazobactam/Dextrose 3.375 gm in 50 mls @ 100 mls/hr 08/08/23 03:00 08/09/23 04:12 Zosyn 3.375 Gm/Ns 50 Ml IVPB Infused Q6H REINA Infusion Clindamycin Phosphate 600 mg in 50 mls @ 100 mls/hr 08/08/23 22:00 08/09/23 06:40 Clindamycin 600 Mg/D5w 50 Ml IVPB Infused Q8H REINA Infusion Miscellaneous Information 1 each 08/07/23 00:01 Nonformulary Drug (Buprenorphine-Naloxone 12-3 Mg Film)Rn To See If Can Bring In Am. XX 09/06/23 00:00 CLARIFY REINA Morphine Sulfate 4 mg 08/07/23 20:14 08/08/23 18:37 Morphine Sulfate (*Crx) 4 Mg/Ml Inj IV PUSH 4 mg Q2H
--- NOTE | 2023-08-09 07:21 | WPDANESPN ---
Anes - Prog Note Post-Op Date/Time: 08/09/23 07:21 Cardiovascular status: normal Respiratory status: normal Airway patency: baseline Mental status: baseline Post-Op hydration status: normal Vital Signs: Last Vital Signs Temp 97.5 F L 08/09/23 04:23 Pulse 51 L 08/09/23 04:23 Resp 16 08/09/23 04:23 BP 102/50 L 08/09/23 04:23 Pulse Ox 96 08/09/23 04:23 O2 Del Method Room Air 08/08/23 20:00 O2 Flow Rate 8 08/08/23 08:35 Pain Score (VAS): 7 but tolerable I/O: Intake & Output 08/08/23 08/08/23 08/09/23 15:59 23:59 07:59 Intake Total 490 100 300 Output Total 1400 Balance -910 100 300 Laboratory Tests 08/09/23 05:09 08/09/23 05:09 08/08/23 08/08/23 08/09/23 03:51 07:14 05:09 WBC 11.7 H 4.9 RBC 3.57 L 3.87 L Hgb 12.0 L 12.8 L Hct 33.5 L 36.6 L MCV 93.8 94.6 MCH 33.6 33.1 MCHC 35.8 35.0 RDW 11.9 11.9 Plt Count 155 165 MPV 10.1 9.9 Sodium 137 141 Potassium 3.4 3.4 3.1 L Chloride 109 H 108 H Carbon Dioxide 23 25 Anion Gap 5 8 BUN 8 L D 7 L Creatinine 0.90 0.90 Estim Creat Clear Calc 89 89 Estimated GFR > 60 > 60 Glucose 107 122 H Calcium 8.0 L 8.4 Microbiology 08/07/23 20:36 Blood Blood Culture - Preliminary 08/07/23 20:42 Blood Blood Culture - Preliminary 08/07/23 20:57 Abscess Wound Culture - Preliminary Post-procedural complaints: none Patient Feedback: Patient satisfied with anesthetic care. Other Findings: Anesthesia did a fine job
[2023-08-09] MEDS: OXcarbazepine 150 MG TABLET PO (07:37)
[2023-08-09] MEDS: allopurinoL 100 MG TABLET PO (07:37)
[2023-08-09] MEDS: HYDROcodone/acetaminophen (*CRX) 7.5-325 MG TABLET 1 TAB PO (07:37)
[2023-08-09] MEDS: PROPRANOLOL HCL 20 MG TABLET PO (07:37)
[2023-08-09 08:55] VITALS: O2SAT 96
[2023-08-09] MEDS: POTASSIUM CHLORIDE 20 MEQ ER TABLET 40 MEQ PO (11:40)
--- NOTE | 2023-08-09 11:59 | WPDPN ---
Progress Note: A&P Assessment and Plan (1) Abscess of scrotum: Code(s): N49.2 - Inflammatory disorders of scrotum Status: Acute Assessment and Plan: Patient doing well after incision and drainage of left scrotal abscess which extended to the left perineal area and left perirectal area. Wound is packed. Infection is resolving with the incision and drainage. Patient will be managed by Dr. Beckett. [place] drain can be removed the office in next week. Patient has see me in my office as needed. Otherwise follow-up Dr. Beckett. Subjective Date/time seen: 08/09/23 11:59 Interval history: patient doing well today. Feels much better. Patient had incision and drainage of scrotal and left perineal and perirectal abscess yesterday. Exam : Other: Base of scrotum wound is open. Packing is in place. No bleeding. Decreased redness but still residual induration. Decreased redness induration left perineal area. Looped Leann drain in place. Objective Data Vital Signs Vital Signs: Vital Signs - 24 hr 08/08/23 16:00 08/08/23 20:31 08/08/23 20:33 Temperature 36.4 C L 36.9 C Pulse Rate 63 71 71 Respiratory Rate 14 16 Blood Pressure 118/60 112/72 Pulse Oximetry 98 100 Oxygen Delivery 08/08/23 20:00 08/09/23 04:23 08/09/23 08:00 Temperature 36.4 C L Pulse Rate 51 L Respiratory Rate 16 Blood Pressure 102/50 L Pulse Oximetry 96 Oxygen Delivery Room Air Room Air 08/09/23 08:55 Temperature Pulse Rate Respiratory Rate Blood Pressure Pulse Oximetry 96 Oxygen Delivery Room Air Intake/Output Intake/Output: Intake & Output 08/06/23 08/07/23 08/08/23 08/09/23 23:59 23:59 23:59 23:59 Intake Total 2570 990 590 Output Total 2100 Balance 2570 -1110 590 Meds/Results Medications: Active Medications Generic Name Dose Route Start Last Admin Trade Name Freq PRN Reason Stop Dose Admin Hydrocodone Bitart/Acetaminophen 1 tab 08/09/23 06:51 08/09/23 07:37 Hydrocodone/Acetaminophen (*Crx) 7.5-325 Mg Tablet PO 1 tab Q6H PRN Administration Pain Rated 7-10 Allopurinol 100 mg 08/08/23 09:00 08/09/23 07:37 Allopurinol 100 Mg Tablet PO 100 mg DAILY REINA Administration Gabapentin 600 mg 08/08/23 06:00 08/09/23 06:14 Gabapentin 300 Mg Capsule PO 600 mg Q8HR REINA Administration Piperacillin/Tazobactam/Dextrose 3.375 gm in 50 mls @ 100 mls/hr 08/08/23 03:00 08/09/23 08:07 Zosyn 3.375 Gm/Ns 50 Ml IVPB Infused Q6H REINA Infusion Clindamycin Phosphate 600 mg in 50 mls @ 100 mls/hr 08/08/23 22:00 08/09/23 06:40 Clindamycin 600 Mg/D5w 50 Ml IVPB Infused Q8H REINA Infusion Miscellaneous Information 0 each 08/09/23 00:01 Recommend Hold Suboxone Film While Hospitalized, Due To Patient Receiving [place] And [place] XX 09/08/23 00:00 CLARIFY [facility] Morphine Sulfate 4 mg 08/07/23 20:14 08/08/23 18:37 Morphine Sulfate (*Crx) 4 Mg/Ml Inj IV PUSH 4 mg Q2H PRN Administration Pain Rated 7-10 Non-Formulary Medication 1 film 08/07/23 22:00 Buprenorphine-Naloxone BUCCAL 09/06/23 21:59 Q24H [facility] Ondansetron HCl 4 mg 08/07/23 20:14 Ondansetron Inj 4 Mg/2 Ml Vial IV PUSH Q4H PRN Nausea Oxcarbazepine 150 mg 08/07/23 21:00 08/09/23 07:37 Oxcarbazepine 150 Mg Tablet PO 150 mg Q12HR [facility] Administration Propranolol HCl 20 mg 08/07/23 21:00 08/09/23 07:37 Propranolol Hcl 20 Mg Tablet PO 20 mg Q12H [facility] Administration Quetiapine Fumarate 100 mg 08/07/23 21:00 08/09/23 07:36 Quetiapine Fumarate 100 Mg Tablet PO Not Given Q12HR [facility] Radiology Results: ITS Impressions Abdomen/Pelvis CT 08/07/23 18:55 IMPRESSION: Posterior left scrotal abscess extending into the left perineum and medial aspect of the left gluteal fold Labs Labs: Laboratory Results - last 24 hr 08/09/23 05:09 WBC 4.9 RBC 3.87 L Hgb 12.8 L Hct 36.6 L M
[2023-08-09 12:01] LABS: Magnesium 2.1 mg/dL (1.6-2.3)
[2023-08-09 12:56] LABS: MRSA (PCR) NOT DETECTED (NOT DETECTE)
[2023-08-09 14:00] VITALS: BP 117/79; PULSE 59; RESP 14; TEMP 36.1; O2SAT 100
[2023-08-09 14:47] LABS: Anion Gap 9 mmol/L (4-12); Blood Urea Nitrogen 7 mg/dL (9-20); Calcium 8.7 mg/dL (8.4-10.2); Carbon Dioxide 22 mmol/L (22-30); Chloride 110 mmol/L (98-107); Estimated CRCL calculation 100 ml/min; Estimated Glomerular Filt Rate > 60; Glucose 98 mg/dL (65-110); Potassium 3.8 mmol/L (3.4-5.0); Sodium 141 mmol/L (137-145)
--- NOTE | 2023-08-09 15:04 | PM.DS ---
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 The patient presents with scrotal abscess on the left side with involvement of the perineum with Dr. Beckett and Dr. Nielson on 08/08/2023. Post surgery the patient did very well. He is in great spirits in great contrast to when he arrived. Feels well enough to go home and the is comfortable changing his gauze packing. Leann drain is in place and the wound looks good with minimal drainage. Leukocytosis has resolved. Patient will follow-up with Dr. Beckett. He had acute hypokalemia which was replaced and resolved. In addition he had soft blood pressures so his lisinopril is on hold until further notice while he will be discharged with Bactrim and Flagyl for 7 days. Preliminary blood cultures growing Gram-positive cocci and gram negative bacilli. He was receiving clindamycin Zosyn and vancomycin IV while inpatient. The MRSA nares screen resulted negative. Patient is stable for discharge to home on 08/09/2023 with the . Time Spent with Patient Time attestation: Total time spent providing and/or coordinating discharge services: Exam Const: General: cooperative and no acute distress Resp: Effort & Inspection: normal respiratory effort Auscultation: clear to auscultation bilaterally Cardio: Rate: regular rate Rhythm: regular rhythm Heart sounds: S1 normal heart sound present and S2 normal heart sound present GI: GI Palp: No abdominal tenderness Auscultation: normal bowel sounds : Other: Surgical site abscess packing with minimal serosanguineous drainage. No tenderness to palpation Extrem: General: no edema DS: Data Data Completed and Pending Labs on day of discharge: Labs from last 24 hours 08/09/23 08/09/23 08/09/23 14:00 11:37 05:09 WBC 4.9 RBC 3.87 L Hgb 12.8 L Hct 36.6 L MCV 94.6 MCH 33.1 MCHC 35.0 RDW 11.9 Plt Count 165 MPV 9.9 Sodium 141 141 Potassium 3.8 3.1 L Chloride 110 H 108 H Carbon Dioxide 22 25 Anion Gap 9 8 BUN 7 L 7 L Creatinine 0.80 0.90 Estim Creat Clear Calc 100 89 Estimated GFR > 60 > 60 Glucose 98 122 H Calcium 8.7 8.4 Magnesium Nasal MRSA (PCR) Not detected 08/09/23 05:01 WBC RBC Hgb Hct MCV MCH MCHC RDW Plt Count MPV Sodium Potassium Chloride Carbon Dioxide Anion Gap BUN Creatinine Estim Creat Clear Calc Estimated GFR Glucose Calcium Magnesium 2.1 Nasal MRSA (PCR) Preliminary micro results at discharge 08/07/23 20:57 Wound Culture - Preliminary Abscess 08/07/23 20:36 Blood Culture - Preliminary Blood 08/07/23 20:42 Blood Culture - Preliminary Blood Discharge Plan Discharge Attending physician on discharge: Zulma Lin Consulting providers: Alda Motley; Anthony Nielson; Wale Beckett Discharging Clinician: Zulma Lin Patient Disposition: Home, Self-Care Activity: may shower Diet: heart healthy Discharge Instructions: Patient may discharge from the hospital as per Dr. Beckett' instructions. Follow-up Dr. Nielson in the office only as needed. Patient Instructions: Antibiotic Form, Pain Management (DC), Orchitis (GEN) Stand Alone Forms: General Discharge Information Follow-up/Referrals: Wale Beckett MD [Physician] - 2 Weeks Jareth Bhakta MD [Primary Care Provider] - 2 Weeks Discharge Medications: New sulfamethoxazole-trimethoprim [Bactrim DS
== END 2023-08-09 16:00 | disposition home or self-care (01) ==
LOC: ANHED 20:14 → ANHIMU 22:39 → ANH3MEDSUR 08-08 14:57 → ANHIMU 08-12 08:50
PROVIDERS: Anesthesiology; Urology; Admitting Provider Internal Medicine; Emergency Provider Physician Assistant; PCP Family Medicine; Visit Provider General Practice
PROC: (CPT 54700; principal; 2023-08-08 07:00)
DX: N49.2 Inflammatory disorders of scrotum (principal); K61.1 Rectal abscess; L02.215 Cutaneous abscess of perineum; E87.6 Hypokalemia; I10 Essential (primary) hypertension; B19.20 Unspecified viral hepatitis C without hepatic coma; F17.210 Nicotine dependence, cigarettes, uncomplicated; F12.90 Cannabis use, unspecified, uncomplicated; F10.21 Alcohol dependence, in remission
CPT/HCPCS: 10061; 55100; 36415; 74177; 80048; 80053; 81001; 82565; 83605; 83690; 83735; 84132; 85025; 85027; 87040; 87070; 87205; 87641; 93005; 96361; 96365; 96366; 96368; 96375; 99285; A9270; G0378; J2250; J2270; J2405; J2543; J2704; J3010; J3370; J3480; J7030; J7040; J7120; Q9967